=== PATIENT | male | born 1935 | race Caucasian/White ===

== ENCOUNTER 2017-08-11 06:27 | Day surgery (SDC) | payer MEDICARE, BC ==
[2017-08-09 13:04] VITALS: BMI 24.7
[2017-08-11] MEDS ORDERED: ASPIRIN 325 MG TAB ONE (07:05)
[2017-08-11] MEDS ORDERED: LOSARTAN 50 MG TAB PO STA (07:05)
[2017-08-11] MEDS ORDERED: SODIUM CHLORIDE 0.9% 1,000 ML IV ONE (07:21)
[2017-08-11 07:26] LABS: Basophils # (A) 0.1 k/uL (0-0.2); Basophils % (A) 1 %; Eosinophils # (A) 0.6 k/uL (0-0.7); Eosinophils % (A) 7 %; HCT 46.8 % (39.0-53.0); HGB 14.9 gm/dL (13.0-17.5); Lymphocytes # (A) 1.6 k/uL (1.0-4.8); Lymphocytes % (A) 17 %; MCH 28.8 pg (25.0-35.0); MCHC 31.9 g/dL (31.0-37.0); MCV 90.2 fL (80.0-100.0); Mean Platelet Volume 7.3; Monocytes # (A) 0.9 k/uL (0-1.0); Monocytes % (A) 9 %; Neutrophils # (A) 5.8 k/uL (1.3-7.7); Neutrophils % (A) 64 %; Platelet Count 141 k/uL (150-450); RBC 5.19 m/uL (4.30-5.90); RDW 15.2 % (11.5-15.5); WBC 9.1 k/uL (3.8-10.6)
[2017-08-11 07:36] LABS: Anion Gap 11 mmol/L; Blood Urea Nitrogen 19 mg/dL (9-20); Calcium 9.3 mg/dL (8.4-10.2); Carbon Dioxide 23 mmol/L (22-30); Chloride 107 mmol/L (98-107); Glucose 95 mg/dL (74-99); Potassium 4.7 mmol/L (3.5-5.1); Sodium 141 mmol/L (137-145)
[2017-08-11] MEDS: MIDAZOLAM 2 MG/2 ML VIAL IVP ONE ×2 (08:08→08:13)
[2017-08-11] MEDS ORDERED: LIDOCAINE 2% INJ 20 MG/ML SQ ONE (08:11)
[2017-08-11] MEDS ORDERED: HEPARIN SODIUM 1,000 UN/ML (10ML VL) IV ONE (08:18)
[2017-08-11] MEDS: hydrALAZINE HCL 20 MG/ML 1 ML VIAL IV ONE ×2 (08:39→08:58)
[2017-08-11] MEDS ORDERED: ENALAPRILAT 1.25 MG/ML 1 ML VIAL IV ONE (08:40)
[2017-08-11] MEDS ORDERED: CLOPIDOGREL 75 MG TAB PO ONE (09:42)
[2017-08-11] MEDS ORDERED: IODIXANOL 320 MG/ML 100 ML INTRAARTER ONE (10:06)
[2017-08-11] MEDS ORDERED: hydrALAZINE HCL 20 MG/ML 1 ML VIAL IVP ONE (10:06)
[2017-08-11] MEDS ORDERED: SODIUM CHLORIDE 0.9% 1,000 ML IV SCH (10:15)
--- NOTE | 2017-08-11 13:09 | AN ---
ANGIOGRAPHY REPORT PERCUTANEOUS PERIPHERAL INTERVENTION. DATE OF SERVICE: 08/11/2017 PERFORMING PHYSICIAN: Ramon oRdriguez MD, auxiliary equipment tender. PROCEDURE PERFORMED: 1. Selective bilateral common iliac arteries angiogram. 2. Successful stenting of the left common iliac artery using a 10 x 59 Omnilink balloon expandable stent with good angiographic results. 3. Successful stenting of the right external iliac artery using a 9 x 59 iCAST covered stent with good angiographic results. 4. Selective left SFA angiogram. 5. Selective left popliteal angiogram. 6. Selective left [id number] angiogram. 7. Selective right common femoral artery angiogram. INDICATION: This is a pleasant 82-year-old gentleman who sees Dr. Hoda Hinojosa in the office as an outpatient who was experiencing bilateral lower extremities intermittent claudication and underwent a peripheral angiogram which revealed severe disease involving the left common iliac and right external iliac arteries. He was brought today to undergo an intervention. APPROACH: Right common femoral artery. COMPLICATION: None. LEVEL OF SEDATION: Moderate with sedation length of 109 minutes. PROCEDURE DESCRIPTION: After obtaining an informed consent, the patient was brought to cardiac laborer cutting tool. The right common femoral artery was cannulated using micropuncture technique and a micropuncture wire passed easily, then I placed a 6-Indian sheath in the right common femoral artery. I did place initially a 6-Indian 11 cm sheath. Subsequently I did select the left profunda femoris using a Rim catheter with 0.035 advantage wire. I did try to exchange my 11 cm sheath into 55 cm 6-Indian Raabe sheath using the advantage wire, but I was unable to get the sheath up and over because of the calcified aortic bifurcation and acute angulation. I was able to get the sheath up and over using a 6- Indian multipurpose catheter. After that, I did selective left common iliac artery angiogram. After that, I did balloon angioplasty of the left common iliac artery using 8 mm balloon. After that, I did deploy an Omnilink and that was 10 x 59 mm stent where the stent was positioned under fluoroscopy guidance and deployed under its nominal pressure for about 1 minute. The following angiogram showed good angiographic results. For the lesion in the right external iliac artery, I did pre-dilate that lesion using the same 8 mm balloon. After that, I did stent that lesion using 9 x 59 mm iCAST covered stent where the stent was positioned under fluoroscopy guidance and deployed under its nominal pressure as well. The following angiogram showed good angiographic results without perforation and without dissection with a good flow. I did after that I do left SFA, left popliteal, and left athlh-ilk-eeyo angiogram to assess the SFA occlusion. I was able to do that after I did select the left iliac artery using 5-Indian Rim catheter. Then I advanced the Rim all the way to the external iliac artery. I did manual injection and pictures. SELECTIVE PERIPHERAL ANGIOGRAM: The SFA on the left side seems to be completely occluded, but I was able to see a tiny stump. It reconstitutes by the popliteal, which is also subtotally occluded. Below the knee, there was 2-vessel runoff with AT and peroneal. POSTPROCEDURE MANAGEMENT: 1. At this point, maximize medical treatment. 2. Risk factors modifications. 3. BUCKET OPERATOR of the left SFA if the patient continues to be symptomatic in spite of what we did today. MMODL / IJN: [id number] /
[2017-08-11] MEDS ORDERED: ATORVASTATIN 80 MG TAB PO SCH (21:00)
[2017-08-12 06:50] LABS: Basophils # (A) 0.1 k/uL (0-0.2); Basophils % (A) 1 %; Eosinophils # (A) 0.2 k/uL (0-0.7); Eosinophils % (A) 2 %; HCT 48.1 % (39.0-53.0); HGB 16.3 gm/dL (13.0-17.5); Lymphocytes # (A) 0.9 k/uL (1.0-4.8); Lymphocytes % (A) 8 %; MCH 29.9 pg (25.0-35.0); MCHC 33.9 g/dL (31.0-37.0); MCV 88.1 fL (80.0-100.0); Mean Platelet Volume 7.1; Monocytes # (A) 1.1 k/uL (0-1.0); Monocytes % (A) 9 %; Neutrophils # (A) 9.4 k/uL (1.3-7.7); Neutrophils % (A) 79 %; Platelet Count 146 k/uL (150-450); RBC 5.47 m/uL (4.30-5.90); RDW 15.2 % (11.5-15.5); WBC 11.9 k/uL (3.8-10.6)
[2017-08-12 07:23] LABS: Anion Gap 11 mmol/L; Blood Urea Nitrogen 13 mg/dL (9-20); Calcium 9.2 mg/dL (8.4-10.2); Carbon Dioxide 24 mmol/L (22-30); Chloride 106 mmol/L (98-107); Glucose 104 mg/dL (74-99); Potassium 3.6 mmol/L (3.5-5.1); Sodium 141 mmol/L (137-145)
--- NOTE | 2017-08-12 08:11 | IR ---
Fluoroscopy HISTORY: Peripheral vascular occlusive disease 35.7 minutes fluoroscopy time supplied to the referring clinician. 704 intraoperative C-arm images d ocument the procedure. See dictated report from cardiology.
[2017-08-12 08:44] VITALS: BP 125/95; PULSE 93; RESP 16; TEMP 96.8
[2017-08-12] MEDS ORDERED: CLOPIDOGREL 75 MG TAB PO SCH (09:00)
--- NOTE | 2017-08-12 22:38 | P.DS ---
Providers Date of admission: 08/11/2017 Attending physician: Ramon Rodriguez Primary care physician: [facility] Course: This is a pleasant 82-year-old gentleman who sees Dr. MURIEL Hinojosa in the office as an outpatient was admitted to the hospital yesterday and underwent successful stenting of the right and left iliac arteries with a good angiographic results and without any complication from a right groin approach. On follow-up with the patient today he is doing good and he is asymptomatic. The right groin which was the access site is soft and nontender and without any bruises. The patient is going to be discharged home on dual antiplatelet therapy as well as a statin. Patient Condition at Discharge: Stable Plan - Discharge Summary Discharge Rx Participant: No New Discharge Prescriptions: New Clopidogrel [Plavix] 75 mg PO DAILY #90 tab Aspirin 81 mg PO DAILY #30 chewable Continue amLODIPine [Norvasc] 10 mg PO HS Atorvastatin [Lipitor] 80 mg PO HS Losartan [Cozaar] 50 mg PO QAM Warfarin [Coumadin] 5 mg PO DAILY Discontinued Aspirin 325 mg PO HS Discharge Medication List Atorvastatin [Lipitor] 80 mg PO HS 05/05/17 [History] Losartan [Cozaar] 50 mg PO QAM 05/05/17 [History] amLODIPine [Norvasc] 10 mg PO HS 05/05/17 [History] Warfarin [Coumadin] 5 mg PO DAILY 08/11/17 [History] Aspirin 81 mg PO DAILY #30 chewable 08/12/17 [Rx] Clopidogrel [Plavix] 75 mg PO DAILY #90 tab 08/12/17 [Rx] Follow up Appointment(s)/Referral(s): Sawyer Hinojosa MD [STAFF PHYSICIAN] - 08/23/17 9:45 am Ramon Rodriguez MD [STAFF PHYSICIAN] - 1 Week (Office will call with appointment time) Patient Instructions/Handouts: Peripheral Vascular Stent Placement (DC), Peripheral Artery Disease (DC) Discharge Disposition: HOME SELF-CARE
== END 2017-08-12 09:50 | disposition home or self-care (01) ==
LOC: CATHCVL 06:27 → 6SEL 09:59 → CATHCVL 08-12 09:50
PROVIDERS: ATTEND Internal Medicine Interventional Cardiology
DX: I70.213 Atherosclerosis of native arteries of extremities with intermittent claudication, bilateral legs (principal); I10 Essential (primary) hypertension; E78.5 Hyperlipidemia, unspecified; Z79.82 Long term (current) use of aspirin; Z86.73 Personal history of transient ischemic attack (TIA), and cerebral infarction without residual deficits; I48.91 Unspecified atrial fibrillation; I77.1 Stricture of artery; E78.00 Pure hypercholesterolemia, unspecified; Z87.891 Personal history of nicotine dependence; Z79.01 Long term (current) use of anticoagulants; Z79.899 Other long term (current) drug therapy
CPT/HCPCS: 37221 ×2; 36245; 36246; 80048 ×2; 85025 ×2; C1894 ×3; C1769 ×4; C1725 ×2; C1874; C1876; J2001; J2250; J0360; Q9967; J1644

== ENCOUNTER 2017-08-16 08:28 | Emergency (ER) | payer MEDICARE, BC ==
--- NOTE | 2017-08-16 09:15 | ED ---
Male Urogenital HPI - General Chief complaint: Urogenital Stated complaint: Urinating blockage Time Seen by Provider: 08/16/17 08:36 Source: patient, RN notes reviewed Mode of arrival: ambulatory Limitations: no limitations - History of Present Illness Initial comments: This an 82-year-old male presents emergency Department chief complaint of unable to urinate. Patient states that he had stent placed in his iliac on the right by Dr. Rodriguez last week. He states that he stayed in the hospital did have a Gil overnight because he was unable to urinate states that was removed he noticed that his stream without very good after in symptoms slowly got worse. He states his been unable to urinate at all this morning. He feels that he is ago he complains of lower abdominal pressure. Patient denies fever, chills. He does admit that he has enlarged prostate and has not seen urologist in a while. Patient offers no other complaints. - Related Data Home Medications Medication Instructions Recorded Confirmed Atorvastatin [Lipitor] 80 mg PO HS 05/05/17 08/16/17 Losartan [Cozaar] 50 mg PO QAM 05/05/17 08/16/17 Warfarin [Coumadin] 5 mg PO DAILY 08/11/17 08/16/17 Metoprolol Tartrate [Lopressor] 25 mg PO BID 08/16/17 08/16/17 Allergies Allergy/AdvReac Type Severity Reaction Status Date / Time No Known Allergies Allergy Verified 08/16/17 09:15 Review of Systems ROS Statement: Those systems with pertinent positive or pertinent negative responses have been documented in the HPI. ROS Other: All systems not noted in ROS Statement are negative. Past Medical History Past Medical History: Cancer, CVA/TIA, Hyperlipidemia, Hypertension Additional Past Medical History / Comment(s): PAD, hx throat CA; CVA 1998, states is numb on left side, History of Any Multi-Drug Resistant Organisms: None Reported Additional Past Surgical History / Comment(s): left carotid endartectomy, justine cataracts, "neck sx for pinched nerve" Past Anesthesia/Blood Transfusion Reactions: No Reported Reaction Past Psychological History: No Psychological Hx Reported Smoking Status: Former smoker Past Alcohol Use History: None Reported Past Drug Use History: None Reported - Past Family History Mother Family Medical History: No Reported History General Exam Limitations: no limitations General appearance: alert, in no apparent distress Head exam: Present: atraumatic, normocephalic, normal inspection Eye exam: Present: normal appearance, PERRL, EOMI. Absent: scleral icterus, conjunctival injection, periorbital swelling ENT exam: Present: mucous membranes moist Respiratory exam: Present: normal lung sounds bilaterally. Absent: respiratory distress, wheezes, rales, rhonchi, stridor Cardiovascular Exam: Present: regular rate, normal rhythm, normal heart sounds. Absent: systolic murmur, diastolic murmur, rubs, gallop, clicks GI/Abdominal exam: Present: soft, tenderness (Suprapubic tenderness), normal bowel sounds. Absent: distended, guarding, rebound, rigid Extremities exam: Present: other (Right groin noted ecchymosis essentially nontender ) Back exam: Absent: CVA tenderness (R), CVA tenderness (L) Skin exam: Present: warm, dry, intact, normal color. Absent: rash Course Vital Signs 08/16/17 08:31 Temperature 97.4 F L Pulse Rate 84 Respiratory 18 Rate Blood Pressure 124/82 O2 Sat by Pulse 94 L Oximetry Medical Decision Making - Medical Decision Making 10-year-old male presented with family for urinary retention. Patient had almost 1 L noted on bladder scan. Gil was placed patient relief of his symptoms. Urinalysis was sent patient be discharged with leg bag and follow-up with urologist. - Lab Data Lab Results 08/16/17 Range/Units 09:08 Urine Color Yellow Urine Appearance Clear (Clear) Urine pH 5.5 (5.0-8.0) Ur Specific [place] 1.014 (1.001-1.035) Urine Protein Trace H (Negative) Urine Glucose (UA) Negative (Negative) Urine Ketones Negative (Negative) Urine Blood Small H (Negative) Urine Nitrite Negative (Negative) Urine Bilirubin Negative (Negative) Urine Urobilinogen <2.0 (<2.0) mg/dL Ur Leukocyte Esterase Negative (Negative) Urine RBC 21 H (0-5) /hpf Urine WBC 3 (0-5) /hpf Urine Mucus Rare H (None) /hpf Disposition Clinical Impression: Urinary retention Disposition: HOME SELF-CARE Condition: Stable Instructions: Urinary Retention in Men (ED) Additional Instructions: Please return to the Emergency Department if symptoms worsen or any other concerns. Referrals: John Cm MD [Primary Care Provider] - 1-2 days Sumeet West MD [STAFF PHYSICIAN] - 1-2 days
[2017-08-16 09:31] LABS: Appearance,Urine Clear (Clear); Bilirubin,Urine Negative (Negative); Blood,Urine Small (Negative); Color,Urine Yellow; Glucose,Urine (UA) Negative (Negative); Ketones,Urine Negative (Negative); Leukocyte Esterase,Urine Negative (Negative); Mucus,Urine Rare /hpf; Nitrite,Urine Negative (Negative); PH, Urine 5.5 (5.0-8.0); Protein,Urine Trace (Negative); RBC,Urine 21 /hpf (0-5); Specific Gravity,Urine 1.014 (1.001-1.035); Urobilinogen,Urine <2.0 mg/dL (<2.0); WBC,Urine 3 /hpf (0-5)
[2017-08-16 10:09] VITALS: BP 122/68; PULSE 76; RESP 16; TEMP 97.8
== END 2017-08-16 10:08 | disposition home or self-care (01) ==
LOC: EC 08:28
DX: R33.9 Retention of urine, unspecified (principal); E78.5 Hyperlipidemia, unspecified; I10 Essential (primary) hypertension; Z86.73 Personal history of transient ischemic attack (TIA), and cerebral infarction without residual deficits; Z85.89 Personal history of malignant neoplasm of other organs and systems; Z87.891 Personal history of nicotine dependence; Z79.01 Long term (current) use of anticoagulants; Z79.899 Other long term (current) drug therapy
CPT/HCPCS: 51702; 51798; 81001; 87086; 99284

== ENCOUNTER 2017-08-27 03:16 | Emergency (ER) | payer MEDICARE, BC ==
[2017-08-27 03:24] VITALS: PULSE 89; RESP 18; TEMP 97
[2017-08-27 04:03] LABS: Appearance,Urine Clear (Clear); Bacteria,Urine Rare /hpf; Bilirubin,Urine Negative (Negative); Blood,Urine Small (Negative); Color,Urine Yellow; Glucose,Urine (UA) Negative (Negative); Hyaline Casts,Urine 5 /lpf (0-2); Ketones,Urine Negative (Negative); Leukocyte Esterase,Urine Small (Negative); Mucus,Urine Rare /hpf; Nitrite,Urine Negative (Negative); Protein,Urine Trace (Negative); RBC,Urine 8 /hpf (0-5); Specific Gravity,Urine 1.017 (1.001-1.035); Squamous Epithelial Cell,Urine <1 /hpf (0-4); Urobilinogen,Urine <2.0 mg/dL (<2.0); WBC,Urine 29 /hpf (0-5)
--- NOTE | 2017-08-27 04:08 | ED ---
Male Urogenital HPI - General Chief complaint: Urogenital Stated complaint: Trouble urinating Time Seen by Provider: 08/27/17 03:27 Source: patient Mode of arrival: ambulatory Limitations: no limitations - History of Present Illness MD Complaint: other (Urinary retention) Onset/Timin -: hour(s) Location: abdomen Radiation: none Severity: moderate Quality: other (Pressure) Consistency: constant Improves with: none Worsens with: none Reports: urinary retention - Related Data Home Medications Medication Instructions Recorded Confirmed Atorvastatin [Lipitor] 80 mg PO HS 05/05/17 08/16/17 Losartan [Cozaar] 50 mg PO QAM 05/05/17 08/16/17 Warfarin [Coumadin] 5 mg PO DAILY 08/11/17 08/16/17 Metoprolol Tartrate [Lopressor] 25 mg PO BID 08/16/17 08/16/17 Allergies Allergy/AdvReac Type Severity Reaction Status Date / Time No Known Allergies Allergy Verified 08/27/17 03:24 Review of Systems ROS Statement: Those systems with pertinent positive or pertinent negative responses have been documented in the HPI. ROS Other: All systems not noted in ROS Statement are negative. Constitutional: Denies: fever, chills, weakness Respiratory: Denies: cough, dyspnea Cardiovascular: Denies: chest pain, palpitations Gastrointestinal: Reports: as per HPI, abdominal pain. Denies: nausea, vomiting , diarrhea Genitourinary: Reports: other (Or tension). Denies: dysuria, hematuria, testicular pain, testicular mass Musculoskeletal: Denies: back pain Skin: Denies: rash Past Medical History Past Medical History: Cancer, CVA/TIA, Hyperlipidemia, Hypertension Additional Past Medical History / Comment(s): PAD, hx throat CA; CVA 1998, states is numb on left side, History of Any Multi-Drug Resistant Organisms: None Reported Additional Past Surgical History / Comment(s): left carotid endartectomy, justine cataracts, "neck sx for pinched nerve," Past Anesthesia/Blood Transfusion Reactions: No Reported Reaction Past Psychological History: No Psychological Hx Reported Smoking Status: Former smoker Past Alcohol Use History: None Reported Past Drug Use History: None Reported - Past Family History Mother Family Medical History: No Reported History General Exam Limitations: no limitations General appearance: alert, in distress Head exam: Present: atraumatic, normocephalic Respiratory exam: Present: normal lung sounds bilaterally. Absent: respiratory distress, wheezes, rales, rhonchi, stridor Cardiovascular Exam: Present: regular rate, normal rhythm, normal heart sounds. Absent: systolic murmur, diastolic murmur, rubs, gallop GI/Abdominal exam: Present: soft, tenderness (Mild suprapubic fullness and tenderness), guarding (Suprapubic), normal bowel sounds. Absent: rebound, rigid , pulsatile mass, hernia exam: Present: normal inspection Extremities exam: Present: normal inspection, normal capillary refill. Absent: pedal edema, calf tenderness Back exam: Present: normal inspection. Absent: CVA tenderness (R), CVA tenderness (L) Neurological exam: Present: alert Skin exam: Present: warm, dry, intact, normal color. Absent: rash Course Vital Signs 08/27/17 03:18 Temperature 97.0 F L Pulse Rate 89 Respiratory 18 Rate O2 Sat by Pulse 100 Oximetry Medical Decision Making - Medical Decision Making Patient had a catheter placed which did relieve the tension and his symptoms resolved. Discussed appropriate further care and follow-up. - Lab Data Lab Results 08/27/17 Range/Units 03:43 Urine Color Yellow Urine Appearance Clear (Clear) Urine pH 6.0 (5.0-8.0) Ur Specific [place] 1.017 (1.001-1.035) Urine Protein Trace H (Negative) Urine Glucose (UA) Negative (Negative) Urine Ketones Negative (Negative) Urine Blood Small H (Negative) Urine Nitrite Negative (Negative) Urine Bilirubin Negative (Negative) Urine Urobilinogen <2.0 (<2.0) mg/dL Ur Leukocyte Esterase Small H (Negative) Urine RBC 8 H (0-5) /hpf Urine WBC 29 H (0-5) /hpf Urine WBC Clumps Rare H (None) /hpf Ur Squamous Epith Cells <1 (0-4) /hpf Urine Bacteria Rare H (None) /hpf Hyaline Casts 5 H (0-2) /lpf Urine Mucus Rare H (None) /hpf Disposition Clinical Impression: Urinary retention Disposition: HOME SELF-CARE Condition: Fair Instructions: Urinary Retention in Men (ED) Referrals: John Cm MD [Primary Care Provider] - 1-2 days
== END 2017-08-27 04:26 | disposition home or self-care (01) ==
LOC: EC 03:16
DX: R33.9 Retention of urine, unspecified (principal); E78.5 Hyperlipidemia, unspecified; I10 Essential (primary) hypertension; Z86.73 Personal history of transient ischemic attack (TIA), and cerebral infarction without residual deficits; Z85.818 Personal history of malignant neoplasm of other sites of lip, oral cavity, and pharynx; Z87.891 Personal history of nicotine dependence; Z79.01 Long term (current) use of anticoagulants; Z79.899 Other long term (current) drug therapy
CPT/HCPCS: 36415; 51702; 81001; 84550; 85025; 87086; 99283

== ENCOUNTER → 2017-08-27 | Outpatient (CLI) | payer MEDICARE, BC ==
[2017-08-27 16:32] LABS: Basophils % (A) 0 %; Eosinophils # (A) 0.2 k/uL (0-0.7); Eosinophils % (A) 2 %; HGB 13.4 gm/dL (13.0-17.5); Hypochromasia Slight; Lymphocytes # (A) 0.5 k/uL (1.0-4.8); Lymphocytes % (A) 5 %; MCH 27.9 pg (25.0-35.0); MCHC 30.6 g/dL (31.0-37.0); MCV 91.3 fL (80.0-100.0); Mean Platelet Volume 7.6; Monocytes # (A) 0.8 k/uL (0-1.0); Monocytes % (A) 8 %; Neutrophils # (A) 7.7 k/uL (1.3-7.7); Neutrophils % (A) 82 %; Platelet Count 174 k/uL (150-450); RBC 4.82 m/uL (4.30-5.90); RDW 14.7 % (11.5-15.5); WBC 9.5 k/uL (3.8-10.6)
== END | disposition home or self-care (01) ==
LOC: LABWHC1 15:30
PROVIDERS: ATTEND Internal Medicine
DX: M10.9 Gout, unspecified (principal); N39.0 Urinary tract infection, site not specified
CPT/HCPCS: 36415; 84550; 85025; 87086

== ENCOUNTER 2018-09-13 07:50 | Inpatient (IN) | payer MEDICARE, BC ==
[2018-09-13] MEDS ORDERED: ALPRAZolam 0.25 MG TAB PO ONE (08:28)
[2018-09-13] MEDS ORDERED: HYDROmorphone 1 MG/ML 1 ML SYRINGE IVP STA ×4 (08:28→18:28)
[2018-09-13 08:38] LABS: INR 1.3 (<1.2)
--- NOTE | 2018-09-13 11:39 | CT ---
EXAMINATION TYPE: CT biopsy lung RT, CT chest tube insertion DATE OF EXAM: 09/13/2018 COMPARISON: None HISTORY: Right lower lobe pulmonary mass. TECHNIQUE: The procedure is discussed with the patient, the risks, complications, benefits and altern atives, were discussed and any questions were answered. Informed consent was obtained. Preprocedura l timeout was performed. The patient is placed prone on the CT table, prepped and draped in the usual sterile fashion. Utilizing an 18-gauge coaxial temno needle access into the right lobe mass was achieved with the firs t pass demonstrating a good core sample with the appearance of necrotic tissue. However on the second pass a pneumothorax occurred. Given the size of the pneumothorax a thoracostomy tube was placed and the area was removed. Subsequently additional 4 core needle biopsies were obtained with confirmation of the needle within the pulmonary nodule under CT. All elements of maximal barrier technique were utilized. Despite the pneumothorax the patient remained stable throughout the procedure. Findings and complications were discussed with the patient and the patient's family as well as the or dering physician after biopsy. The patient will be admitted and monitored. IMPRESSION: Successful CT guided fine needle aspiration of a right lobe lung mass and insertion of a right-sided thoracostomy tube.
--- NOTE | 2018-09-13 11:41 | XR ---
EXAMINATION TYPE: XR chest 1V portable DATE OF EXAM: 09/13/2018 COMPARISON: CT-guided lung biopsy of 09/13/2018 HISTORY: Right-sided pneumothorax status post lung biopsy. TECHNIQUE: Single frontal view of the chest is obtained. FINDINGS: There is a right-sided pneumothorax with maximal pleural separation of the peripheral righ t upper lung measuring 1 cm and of the right lower lung measuring 1.6 cm. Thoracostomy tube is in jemal ce placed medially along the right lower lobe. Scattered areas of atelectasis are seen within both aditi ngs. The right lower lobe. Nodule is partially extruded. Cardia mediastinal silhouette is enlarged. IMPRESSION: Status post right-sided lung biopsy with right pneumothorax as measured above and right thoracostomy tube in place.
[2018-09-13] MEDS ORDERED: CYCLOBENZAPRINE 5 MG TAB PO STA (11:57)
[2018-09-13 12:52] LABS: HCT 48.8 % (39.0-53.0); HGB 15.5 gm/dL (13.0-17.5); MCH 30.4 pg (25.0-35.0); MCHC 31.7 g/dL (31.0-37.0); MCV 95.8 fL (80.0-100.0); Mean Platelet Volume 8.9; RBC 5.09 m/uL (4.30-5.90); RDW 15.8 % (11.5-15.5); WBC 8.8 k/uL (3.8-10.6)
[2018-09-13 12:58] LABS: Platelet Count 133 k/uL (150-450)
[2018-09-13 13:17] VITALS: BMI 24.3
--- NOTE | 2018-09-13 13:20 | XR ---
EXAMINATION TYPE: XR chest 1V portable DATE OF EXAM: 09/13/2018 COMPARISON: 09/13/2018 HISTORY: Status post right-sided lung biopsy. Pneumothorax. TECHNIQUE: Single frontal view of the chest is obtained. FINDINGS: There is improving right-sided pneumothorax with maximal right apical pleural separation o f 9 mm, previously 1 cm in maximal right basilar pleural separation of 4 mm, previously 1.6 cm. There is a medial right-sided thoracostomy tube. Scattered areas of atelectasis are again seen. Cardia med iastinal silhouette is enlarged. IMPRESSION: Improving right-sided pneumothorax status post lung biopsy with stable placement of a ri ght-sided thoracostomy tube.
--- NOTE | 2018-09-13 14:10 | XR ---
EXAMINATION TYPE: XR chest 1V portable DATE OF EXAM: 09/13/2018 COMPARISON: 09/13/2018 HISTORY: Status post right-sided lung biopsy pneumothorax follow-up. TECHNIQUE: Single frontal view of the chest is obtained. FINDINGS: The right thoracostomy tube is no longer present. There is a similar appearing right sided pneumothorax estimated at approximately 10% with 8 mm right apical pleural separation and approximat elder 7 mm right basilar pleural separation. Again multifocal atelectasis and cardiomegaly are seen. Os seous structures are grossly intact. No mediastinal shift. IMPRESSION: Similar-appearing size of the approximately 10% right-sided pneumothorax status post danny g biopsy.
--- NOTE | 2018-09-13 16:07 | XR ---
EXAMINATION TYPE: XR chest 1V portable DATE OF EXAM: 09/13/2018 COMPARISON: 09/23/2018 HISTORY: Status post lung biopsy. TECHNIQUE: Single frontal view of the chest is obtained. FINDINGS: The right apical pneumothorax appears similar in size with maximum right upper lung pleura l separation of 1.2 cm. No current mediastinal shift is seen. Cardiac silhouette is again enlarged. R ight basilar pulmonary nodule is now visible radiographically. Multifocal shifting atelectasis is aga in seen. Diffuse osseous demineralization is also noted. IMPRESSION: Overall similar size of the right-sided pneumothorax without current mediastinal shift.
--- NOTE | 2018-09-13 18:07 | XR ---
EXAMINATION: XR chest 1V portable DATE AND TIME: 09/13/2018 5:46 PM CLINICAL INDICATION: PHH; pneumothorax TECHNIQUE: 2 upright portable frontal views COMPARISON: Chest radiograph 09/13/2018 at 3:37 PM FINDINGS: Right pigtail catheter is noted, with pigtail superimposed over the dome of the right hemidiaphragm a t the midclavicular line. There is a prominent fine reticular pattern of increased density throughout the lungs bilaterally, co nsistent with advanced interstitial phase pulmonary edema - worse than the prior study. Partial bibasilar airlessness is also noted, likely atelectasis, but concurrent pneumonia can only be excluded clinically. There is no pneumothorax. Mild moderately enlarged cardiac silhouette is redemonstrated. No definite acute skeletal or soft tissue findings. IMPRESSION: Mild interval worsening in the overall lung inflation pattern.
--- NOTE | 2018-09-13 19:14 | CT ---
EXAMINATION TYPE: SUPINE CHEST CT W/O CON - post chest tube insertion earlier today DATE OF EXAM: 09/13/2018 COMPARISON: Prone CT 10:00 AM 09/13/2008; CXR 5:33 PM today. HISTORY: Chest tube insertion CT DLP: 987 mGycm Automated exposure control for dose reduction was used. FINDINGS: The pigtail catheter is located within the anterior right pleural space, entering from a ri [facility] anter[facility] approach with the center of the pigtail 3.5 cm deep to the rib cage. The catheter, from the skin surface contiguously on into the pleural space, is normal in its appearan ce and is not kinked. The pneumothorax occupies approximately 10-15% of the right hemithorax volume. There is no new lung parenchymal process. The multifocal pleural calcifications are redemonstrated. The soft tissues and skeletal structures are negative for acute findings. Note: When compared to the 5:33 PM radiograph, in retrospect the right visceral line sign can be visu alized high in the right apex, superimposed over the posterior third rib shadow and clavicle. IMPRESSION: POST PROCEDURE CT WITH 10-15% PNEUMOTHORAX AT THE PRESENT TIME.
--- NOTE | 2018-09-13 19:36 | P.HPIM ---
History of Present Illness H&P Date: 09/13/18 Chief Complaint: Pneumothorax 09/13/2018: Patient seen and examined. Patient underwent CT guided needle biopsy and was found to have a right pneumothorax. The patient states he has had shortness of breath for over a year. He states it all started with an irregular heartbeat and he was found to have atrial fibrillation. The patient does follow up with cardiology and underwent a heart catheterization. He was found to have an occluded RCA patient however there are are multiple collaterals. The patient was also found to have pulmonary hypertension with normal left-sided filling pressures. The patient's main pulmonary artery pressure is 26 mmHg. The patien t states that he does wheeze when he lays in bed. He states he can hear himself breathing. He is a former smoker and quit more than 2 years ago. He used to smoke about a pack per day for 40 years. He denies a history of asthma and COPD. He does not use any inhalers or nebulizer. He used to work in a [employer]. He states he was exposed to asbestos in the [employer]. He used to get a chest x-ray once a year but states that he has not had one in over 2 years. He denies a history of lung cancer. He states that he does cough and is very congested especially in the morning. He states he does produce a lot of phlegm. He denies any environmental allergies although his daughter notes that he was allergic to his cat which is no longer in the home. The patient did have a pulmonary function test done. The patient was found to have mild to moderate obstructive lung defect as well as a decreased MVV concerning for neuromuscular disease. He also had blood work done by his primary care physician which showed a mildly elevated BENJY and an elevated eosinophil count at 600. The patient underwent CT of the chest and was found to have a 2.4 x 2.4 cm pleural-based spiculated right lower lobe lung mass which was biopsied today. Review of Systems All systems: negative Past Medical History Past Medical History: Atrial Fibrillation, Cancer, Chest Pain / Angina, COPD, CVA/TIA, Hyperlipidemia, Hypertension, Prostate Disorder, Vascular Disorder Additional Past Medical History / Comment(s): PAD, hx throat CA 14 yrs. ago-tx. w/radiation, CVA 1998- numbness on left side, mass in lung, hx. of asbestos exposure years ago, SOB w/exertion History of Any Multi-Drug Resistant Organisms: None Reported Past Surgical History: Heart Catheterization Additional Past Surgical History / Comment(s): left carotid endartectomy, justine cataracts, "neck sx for pinched nerve," stenting right & left iliac arteries Past Anesthesia/Blood Transfusion Reactions: No Reported Reaction Past Psychological History: No Psychological Hx Reported Smoking Status: Former smoker Past Alcohol Use History: None Reported Additional Past Alcohol Use History / Comment(s): quit smoking 2013, smoked 1ppd from age 15 Past Drug Use History: None Reported - Past Family History Mother Family Medical History: No Reported History Medications and Allergies Home Medications Medication Instructions Recorded Confirmed Type Atorvastatin [Lipitor] 80 mg PO HS 05/05/17 09/13/18 History Losartan [Cozaar] 100 mg PO QAM 05/05/17 09/13/18 History Metoprolol Tartrate [Lopressor] 50 mg PO BID 08/16/17 09/13/18 History Apixaban [Eliquis] 5 mg PO BID 08/26/18 09/13/18 History Aspirin 81 mg PO DAILY 08/26/18 09/13/18 History Beclomethasone Dipropionate [Qvar 1 puff INHALATION BID 08/26/18 09/13/18 History 80 mcg] Cholecalciferol [Vitamin D3] 1,000 unit PO DAILY 08/26/18 09/13/18 History Ferrous Sulfate [Feosol] 325 mg PO DAILY 08/26/18 09/13/18 History Finasteride [Proscar] 5 mg PO DAILY 08/26/18 09/13/18 History Fluticasone Propionate [Flovent 1 puff INHALATION BID 08/26/18 09/13/18 History Hfa 220 mcg] Furosemide [Lasix] 20 mg PO DAILY 08/26/18 09/13/18 History Ranolazine [Ranexa] 500 mg PO BID 08/26/18 09/13/18 History Tamsulosin HCl [Flomax] 0.4 mg PO BID 08/26/18 09/13/18 History hydrALAZINE HCL [Apresoline] 50 mg PO BID 08/26/18 09/13/18 History Allergies Allergy/AdvReac Type Severity Reaction Status Date / Time No Known Allergies Allergy Verified 09/13/18 08:32 Physical Exam Osteopathic Statement: *. No significant issues noted on an osteopathic structural exam other than those noted in the History and Physical/Consult. Vitals: Vital Signs Temp Pulse Resp BP Pulse Ox 09/13/18 17:38 97.7 F 73 18 152/84 94 L 09/13/18 17:15 68 14 173/83 97 09/13/18 17:05 65 14 170/81 98 09/13/18 16:44 68 16 193/100 98 09/13/18 14:45 97.7 F 81 18 123/94 97 09/13/18 12:22 64 14 193/80 98 09/13/18 12:16 70 16 190/86 97 09/13/18 12:15 70 16 193/82 97 09/13/18 11:46 68 14 206/98 98 09/13/18 11:31 64 14 166/88 98 09/13/18 11:16 64 14 180/101 98 09/13/18 11:01 64 16 196/78 97 09/13/18 10:45 63 14 204/92 97 09/13/18 10:30 61 14 193/80 98 09/13/18 10:15 67 16 173/76 94 L 09/13/18 10:00 72 14 180/76 95 09/13/18 09:45 74 14 173/80 97 09/13/18 09:39 74 14 173/87 96 09/13/18 09:30 65 16 180/79 96 09/13/18 09:15 64 14 175/87 97 09/13/18 08:39 97.5 F L 52 L 14 144/75 96 Intake and Output 09/13/18 09/13/18 09/13/18 06:59 14:59 22:59 Intake Total 240 Balance 240 Intake: Oral 240 General: Patient is alert and oriented 3, no acute distress Cardiovascular: Regular rate and rhythm, S1/S2 Lungs: Diminished breath sounds bilaterally, posterior pigtail chest tube in place Abdomen: Soft nontender nondistended positive bowel sounds Extremities: No edema Results CBC & Chem 7: 09/13/18 08:10 Labs: Abnormal Lab Results - Last 24 Hours (Table) 09/13/18 09/13/18 Range/Units 08:10 08:10 RDW 15.8 H (11.5-15.5) % Plt Count 133 L (150-450) k/uL PT 13.0 H (9.0-12.0) sec INR 1.3 H (<1.2) Chest x-ray: report reviewed, image reviewed Thrombosis Risk Factor Assmnt - DVT/VTE Prophylaxis DVT/VTE Prophylaxis: Mechanical Prophylaxis ordered, Low risk, early ambulation encouraged - Choose All That Apply Each Factor Represents 1 point: Abnormal pulmonary function (COPD) Each Risk Factor Represents 2 Points: Malignancy Thrombosis Risk Factor Assessment Total Risk Factor Score: 3 Thrombosis Risk Factor Assessment Level: Moderate Risk Assessment and Plan Assessment: Iatrogenic right pneumothorax s/p biopsy of lung mass Presumed cancer of the lung Moderate COPD (chronic obstructive pulmonary disease) Asbestos exposure Mild pulmonary hypertension BENJY positive REID (dyspnea on exertion) HTN - Hypertension Hyperlipidemia Allergic eosinophilia Pulmonary fibrosis Asthma O2 to maintain saturation > or = 90% Pigtail catheter accidentally dislodged during transport, repeat CXR reviewed Discussed with IR who will replace catheter Follow CXR CT to LIS Continue patient's home medications, hold Eliquis and Ranexa for now Pain control IS and pulmonary hygiene Patient's daughter is at bedside and is updated to the plan of care. Time with Patient: Greater than 30
[2018-09-13] MEDS: ATORVASTATIN 80 MG TAB PO SCH (21:02)
[2018-09-13] MEDS: hydrALAZINE HCL 50 MG TAB PO SCH (21:02)
[2018-09-13] MEDS: METOPROLOL TARTRATE 50 MG TAB PO SCH (21:02)
[2018-09-13] MEDS: TAMSULOSIN 0.4 MG CAP.ER.24H PO SCH (21:02)
--- NOTE | 2018-09-14 00:03 | XR ---
EXAM: XR Chest, 2 Views CLINICAL HISTORY: ITS.REASON XR Reason: chest tube TECHNIQUE: Frontal and lateral views of the chest. COMPARISON: 1733 hrs. FINDINGS: Lungs: Unremarkable. No consolidation. Pleural space: A trace right apical pneumothorax appears to persist. Heart: Unremarkable. No cardiomegaly. Mediastinum: Unremarkable. Bones/joints: No acute fracture. Tubes, lines and devices: Pigtail catheter at the base of the right hemithorax. IMPRESSION: A trace right apical pneumothorax appears to persist.
--- NOTE | 2018-09-14 08:27 | XR ---
EXAMINATION TYPE: XR chest 1V portable DATE OF EXAM: 09/14/2018 COMPARISON: CT chest May 06, 2016. Chest x-ray and CT biopsy from yesterday. HISTORY: Right lung biopsy with pneumothorax status post chest tube placement. TECHNIQUE: Single AP portable frontal upright view of the chest is obtained. FINDINGS: There is persistent right basilar chest tube with tiny right apical pneumothorax. Patchy b ibasilar opacities remain present. Cardiomegaly is seen with atherosclerotic aorta. Multilevel spurri ng and disc space narrowing throughout the spine is present. Osseous structures are intact. Backgroun d chronic emphysematous change redemonstrated. Targeted right basilar nodule less well-seen on x-ray versus CT. IMPRESSION: Overall stable findings from most recent x-ray, tiny right apical pneumothorax with righ t basilar chest tube. Cardiomegaly and chronic emphysematous change with patchy bibasilar atelectasis and/or infiltrate.
[2018-09-14] MEDS: FUROSEMIDE 20 MG TAB PO SCH (09:07)
[2018-09-14] MEDS: CHOLECALCIFEROL 1,000 UNIT TAB PO SCH (09:07)
[2018-09-14] MEDS: ASPIRIN 81 MG PO SCH (09:07)
[2018-09-14] MEDS: LOSARTAN 50 MG TAB PO SCH (09:07)
[2018-09-14] MEDS: METOPROLOL TARTRATE 50 MG TAB PO SCH ×2 (09:07→22:38)
[2018-09-14] MEDS: FINASTERIDE 5 MG TAB PO SCH (09:07)
[2018-09-14] MEDS: hydrALAZINE HCL 50 MG TAB PO SCH ×2 (09:07→22:38)
[2018-09-14] MEDS: TAMSULOSIN 0.4 MG CAP.ER.24H PO SCH ×2 (09:07→22:38)
[2018-09-14] MEDS: FERROUS SULFATE 325 MG TAB PO SCH (09:07)
--- NOTE | 2018-09-14 09:14 | P.GSCN ---
History of Present Illness Consult date: 09/14/18 Reason for Consult: Right pneumothorax, right pigtail catheter management. Requesting physician: Tristan Hinojosa History of present illness: This is an 83-year-old gentleman who is followed by Dr. John Cm on an ou tpatient basis. His past medical history significant for a recently found right lower lobe pleural-based spiculated lung mass per computed tomography scan of his chest measuring 2.4 x 2.4 cm, chronic obstructive pulmonary disease, chronic atrial fibrillation on Eliquis, hypertension, hyperlipidemia, prostate disorder, history of throat cancer 14 years ago, history of cerebrovascular accident in with some residual left sided arm numbness, history of bilateral carotid stenosis, peripheral arterial disease with history of previous iliac stent placements and coronary artery disease. Recently, the patient has been experiencing episodes of shortness of breath, complaining of feeling weak and fatigued. He denies any pain, pre syncope or syncope, nausea, vomiting, fever or chills. He was recently seen by Dr. Huerta a dye line operator out of [facility] and underwent a cardiac catheterization which showed him to have a totally occluded right coronary artery with robust collaterals from a large septal branch and obtuse marginal #2 branch. It also demonstrated him to have pulmonary hypertension with an MPA 26. He was referred to Dr. Story from pulmonary medicine for further evaluation for his shortness of breath. A computed tomography scan of his chest was completed which showed a 2.4 x 2.4 cm pleural-based spiculated right lower lobe lung mass. Due to the incidental finding he was scheduled for a biopsy of the lung mass and a PET scan. Yesterday 09/13/2018, after obtaining consent he underwent a successful CT- guided fine-needle aspiration of the right lower lobe lung mass. During the fine-needle aspiration a right sided pneumothorax occurred and a right-sided pig tail tube was placed. Due to the right pneumothorax a consult was placed to Dr. David Salmeron from cardiothoracic surgery for further evaluation and recommendations. Review of Systems A 14 point review systems was completed and was negative except as mentioned in HPI. Past Medical History Past Medical History: Atrial Fibrillation, Coronary Artery Disease (CAD), Cancer, Chest Pain / Angina, COPD, CVA/TIA, Hyperlipidemia, Hypertension, P rostate Disorder, Vascular Disorder Additional Past Medical History / Comment(s): PAD with history of iliac stent placements, hx throat CA 14 yrs. ago-tx. w/radiation, CVA 1998- numbness left arm, mass in lung, hx. of asbestos exposure years ago, SOB w/exertion, history of bilateral carotid stenosis. History of Any Multi-Drug Resistant Organisms: None Reported Past Surgical History: Heart Catheterization Additional Past Surgical History / Comment(s): left carotid endartectomy, justine cataracts, "neck sx for pinched nerve," stenting right & left iliac arteries Past Anesthesia/Blood Transfusion Reactions: No Reported Reaction Past Psychological History: No Psychological Hx Reported Smoking Status: Former smoker Past Alcohol Use History: None Reported Additional Past Alcohol Use History / Comment(s): quit smoking 2013, smoked 1ppd from age 15 Past Drug Use History: None Reported - Past Family History Mother Family Medical History: No Reported History Medications and Allergies Home Medications Medication Instructions Recorded Confirmed Type Atorvastatin [Lipitor] 80 mg PO HS 05/05/17 09/13/18 History Losartan [Cozaar] 100 mg PO QAM 05/05/17 09/13/18 History Metoprolol Tartrate [Lopressor] 50 mg PO BID 08/16/17 09/13/18 History Apixaban [Eliquis] 5 mg PO BID 08/26/18 09/13/18 History Aspirin 81 mg PO DAILY 08/26/18 09/13/18 History Beclomethasone Dipropionate [Qvar 1 puff INHALATION BID 08/26/18 09/13/18 History 80 mcg] Cholecalciferol [Vitamin D3] 1,000 unit PO DAILY 08/26/18 09/13/18 History Ferrous Sulfate [Feosol] 325 mg PO DAILY 08/26/18 09/13/18 History Finasteride [Proscar] 5 mg PO DAILY 08/26/18 09/13/18 History Fluticasone Propionate [Flovent 1 puff INHALATION BID 08/26/18 09/13/18 History Hfa 220 mcg] Furosemide [Lasix] 20 mg PO DAILY 08/26/18 09/13/18 History Ranolazine [Ranexa] 500 mg PO BID 08/26/18 09/13/18 History Tamsulosin HCl [Flomax] 0.4 mg PO BID 08/26/18 09/13/18 History hydrALAZINE HCL [Apresoline] 50 mg PO BID 08/26/18 09/13/18 History Allergies Allergy/AdvReac Type Severity Reaction Status Date / Time No Known Allergies Allergy Verified 09/13/18 08:32 Surgical - Exam Vital Signs Temp Pulse Resp BP Pulse Ox 97.5 F L 52 L 14 144/75 96 09/13/18 08:39 09/13/18 08:39 09/13/18 08:39 09/13/18 08:39 09/13/18 08:39 - General Thin well developed, well nourished, no distress, no pain - Eyes PERRL, normal ocular movement - ENT normal pinna, normal nares, normal mucosa, no hearing loss, no congestion, dentures - Neck no masses, trachea midline, no venous distension carotid bruit: left - Respiratory Lung sounds are essentially clear throughout, diminished to his bilateral bases. Respirations are symmetrical and nonlabored. Oxygen saturation are 97% on 2 L nasal cannula. Right pleural pigtail catheter in place to low continuous wall suction -20 cm H2O. No air leaks present. Draining thin serosanguineous drainage. 40 mL of drainage since pigtail catheter has been placed. - Cardiovascular Irregular rhythm with controlled rate. S1 and S2 present, negative for S3, gallop or murmur. No edema present. Remote telemetry showing atrial fibrillation heart rate 63. - Abdomen Abdomen is soft, nontender and nondistended. Active bowel sounds to all 4 abdominal quadrants. No guarding or rigidity. No organomegaly. - Genitourinary Deferred - Rectum Deferred - Integumentary no rash, no growths, no abnormal pigmentation - Neurologic Left arm numbness. normal coordination - Musculoskeletal normal gait, normal posture - Psychiatric oriented to time, oriented to person, oriented to place, speech is normal, memory intact Results - Labs 09/13/18 08:10 Abnormal Lab Results - Last 24 Hours (Table) 09/13/18 09/13/18 Range/Units 08:10 08:10 RDW 15.8 H (11.5-15.5) % Plt Count 133 L (150-450) k/uL PT 13.0 H (9.0-12.0) sec INR 1.3 H (<1.2) - Imaging Chest x-ray: report reviewed, image reviewed CT scan - chest: report reviewed, image reviewed Assessment and Plan Assessment: Right pneumothorax status post biopsy of right lung mass Presumed cancer of the lung Chronic obstructive pulmonary disease 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 His chart and diagnostics were reviewed. His case was discussed with Dr. David Salmeron from cardiothoracic surgery. His chest x-ray this morning demonstrates a tiny right apical pneumothorax less than 5%. We will place his right pigtail catheter to waterseal and repeat a chest x-ray 4 hours after placing the chest tube to waterseal. At this time no surgical intervention is recommended. Lung mass pathology results remain pendin g. We will order an incentive spirometry and encouraged him to use it every hour while awake. Medical management per primary care service. Bronchodilator management per pulmonary service. Wean oxygen as tolerated. Increase activity as tolerated. More recommendations to follow based on patient's clinical course. Thank you Dr. Hinojosa for this consult and we will look for to working with you in the care of your patient. Time with Patient: Greater than 30
--- NOTE | 2018-09-14 11:49 | XR ---
EXAMINATION TYPE: XR chest 1V portable DATE OF EXAM: 09/14/2018 COMPARISON: Chest x-ray earlier today. HISTORY: Right-sided pneumothorax. TECHNIQUE: Single frontal view of the chest is obtained. FINDINGS: Tiny right apical pneumothorax on prior study is not clearly seen. Right basilar chest tube redemonstrated. Background chronic emphysematous change with bibasilar opacities suggesting scarring and/or atelectasis. Cardiac silhouette size remains enlarged with atherosclerotic and ectatic aorta. Old fracture deformity mid right clavicle is redemonstrated. IMPRESSION: No significant pneumothorax on current study with right basilar chest tube noted.
--- NOTE | 2018-09-14 12:59 | P.PN ---
Subjective Progress Note Date: 09/14/18 09/14/2018: Patient seen and examined with his daughter at bedside. The patient apparently had worsening shortness of breath overnight. The patient states that he feels 100% at this time. He denies any chest pain or shortness of breath. His chest tube is to waterseal. He did have a chest x-ray which shows no evidence of pneumothorax. This is discussed with cardiothoracic team. We will recheck chest x-ray in 2-3 hours and decide about removing chest tube. Objective - Vital Signs Vital signs: Vital Signs Temp 97.8 F 09/14/18 12:00 Pulse 55 L 09/14/18 12:00 Resp 18 09/14/18 12:00 BP 126/66 09/14/18 12:00 Pulse Ox 94 L 09/14/18 12:00 Intake & Output 09/13/18 09/14/18 09/14/18 18:59 06:59 18:59 Intake Total 240 Balance 240 Weight 72.5 kg Intake: Oral 240 Other: Voiding Method Toilet # Voids 1 - Exam General: Patient is alert and oriented 3, no acute distress Cardiovascular: Regular rate and rhythm, S1/S2 Lungs: Diminished breath sounds bilaterally, pigtail chest tube in place Abdomen: Soft nontender nondistended positive bowel sounds Extremities: No edema - Labs CBC & Chem 7: 09/13/18 08:10 Labs: Abnormal Lab Results - Last 24 Hours (Table) 09/13/18 Range/Units 08:10 RDW 15.8 H (11.5-15.5) % Plt Count 133 L (150-450) k/uL Assessment and Plan Assessment: Iatrogenic right pneumothorax s/p biopsy of lung mass Presumed cancer of the lung Moderate COPD (chronic obstructive pulmonary disease) Asbestos exposure Mild pulmonary hypertension BENJY positive REID (dyspnea on exertion) HTN - Hypertension Hyperlipidemia Allergic eosinophilia Pulmonary fibrosis Asthma O2 to maintain saturation > or = 90% Follow CXR - repeat in 2 hours on water seal and decide on next steps Continue patient's home medications, hold Eliquis and Ranexa for now Pain control IS and pulmonary hygiene Patient's daughter is at bedside and is updated to the plan of care.
--- NOTE | 2018-09-14 15:43 | XR ---
EXAMINATION TYPE: XR chest 1V portable DATE OF EXAM: 09/14/2018 COMPARISON: Chest x-ray earlier today. HISTORY: Right-sided pneumothorax. TECHNIQUE: Single AP portable frontal upright view of the chest is obtained. FINDINGS: No significant new right-sided pneumothorax. Right basilar chest tube is redemonstrated. [place] chronic emphysematous change with increasing bibasilar opacities suggesting scarring and/or atelectasis. Cardiac silhouette size remains enlarged with atherosclerotic and ectatic aorta. Old fra cture deformity mid right clavicle is redemonstrated. IMPRESSION: No new pneumothorax. Increasing bibasilar atelectasis and/or infiltrate with right basil ar chest tube in place.
[2018-09-14] MEDS: ATORVASTATIN 80 MG TAB PO SCH (22:38)
[2018-09-15] MEDS: LOSARTAN 50 MG TAB PO SCH (08:53)
[2018-09-15] MEDS: ASPIRIN 81 MG PO SCH (08:54)
[2018-09-15] MEDS: FINASTERIDE 5 MG TAB PO SCH (08:54)
[2018-09-15] MEDS: hydrALAZINE HCL 50 MG TAB PO SCH (08:54)
[2018-09-15] MEDS: METOPROLOL TARTRATE 50 MG TAB PO SCH (08:54)
[2018-09-15] MEDS: CHOLECALCIFEROL 1,000 UNIT TAB PO SCH (08:54)
[2018-09-15] MEDS: TAMSULOSIN 0.4 MG CAP.ER.24H PO SCH (08:54)
[2018-09-15] MEDS: FERROUS SULFATE 325 MG TAB PO SCH (08:54)
[2018-09-15] MEDS: FUROSEMIDE 20 MG TAB PO SCH (08:58)
--- NOTE | 2018-09-15 08:59 | P.PN ---
Subjective Progress Note Date: 09/15/18 Principal diagnosis: Spontaneous right sided pneumothorax status post fine needle aspiration for biopsy with pigtail placement by interventional radiology. Previous medical history of RLL spiculated mass on CT, COPD, previous tobacco dependence, pulmonary hypertension, asbestosis exposure, chronic afib on Eliquis for anticoagulation, throat cancer 14 years ago status post radiation, coronary artery disease, hypertension, hyperlipidemia, prostate disorder, CVA with residual left arm numbness, bilateral carotid stenosis status post left carotid endarterectomy, peripheral arterial disease with iliac stent placement. The patient is currently sitting up in bed in no acute distress eating breakfast. Denies pain or shortness of breath. Has been ambulatory in the room without difficulty. [facility], no air leak present. Actively using his incentive spirometry. No new complaints except he wants the chest tube out. Objective - Vital Signs Vital signs: Vital Signs Temp 98.2 F 09/15/18 03:57 Pulse 63 09/15/18 03:57 Resp 18 09/15/18 03:57 BP 92/59 09/15/18 03:57 Pulse Ox 94 L 09/15/18 03:57 Intake & Output 09/14/18 09/15/18 09/15/18 18:59 06:59 18:59 Intake Total 230 480 Balance 230 480 Weight 72.1 kg Intake: Oral 230 480 Other: # Voids 1 - Constitutional General appearance: Present: cooperative, no acute distress - Respiratory Details: Lungs sounds diminished bilaterally. Respirations even, nonlabored. Currently on room air with oxygen saturation 94%. Able to achieve 3000 mL on his incentive spirometry. Strong cough. Right pigtail catheter present, connected to atrium to waterseal, 60 mL serosanguineous output since insertion, no air leak present. - Cardiovascular Details: S1, S2 present. Irregular rate and rhythm, controlled atrial fibrillation on telemetry. Palpable peripheral pulses bilaterally. No edema present. No calf pain or tenderness noted. - Gastrointestinal Gastrointestinal Comment(s): Abdomen soft, nontender, nondistended. Active bowel sounds present 4 quadrants. Tolerating diet. - Genitourinary Genitourinary Comment(s): Continues to void clear, yellow urine. - Integumentary Integumentary Comment(s): Skin is warm and dry without evidence of good perfusion. Dressing over right sided pigtail catheter clean dry and intact. - Neurologic Neurologic: Present: CNII-XII intact - Musculoskeletal Musculoskeletal: Present: gait normal, strength equal bilaterally - Psychiatric Psychiatric: Present: A&O x's 3, appropriate affect, intact judgment & insight - Allied health notes Allied health notes reviewed: nursing - Labs CBC & Chem 7: 09/13/18 08:10 - Imaging and Cardiology Chest x-ray: image reviewed Assessment and Plan Assessment: Spontaneous right-sided pneumothorax, status post fine-needle aspiration for biopsy with pigtail catheter placement by interventional radiology History of right lower lobe spiculated mass on CT, presumed cancer COPD Previous tobacco dependence Pulmonary hypertension Asbestosis exposure Chronic atrial fibrillation on Eliquis for anticoagulation Throat cancer 14 years ago status post radiation Coronary artery disease status post recent heart catheterization Hypertension Hyperlipidemia Prostate disorder CVA with residual left arm numbness Bilateral carotid stenosis status post left carotid endarterectomy Peripheral arterial disease with iliac stent placement Plan: 1. No surgical intervention recommended. Pigtail catheter can be discontinued by interventional radiology if okay with Dr. Story. 2. Encourage incentive spirometry use 10 times every hour while awake. 3. Encourage continued smoking cessation. 4. Bronchodilators per pulmonology 5. Increase activity as tolerated, ambulate in hallway. 6. We will continue to see on an as-needed basis. Please call us with any questions. Time with Patient: Greater than 30
--- NOTE | 2018-09-15 10:13 | XR ---
EXAMINATION TYPE: XR chest 1V portable DATE OF EXAM: 09/15/2018 COMPARISON: 09/14/2018 INDICATION: Right-sided pneumothorax TECHNIQUE: Single frontal view of the chest is obtained. FINDINGS: The heart size is normal. The pulmonary vasculature is normal. There is improving lung markings at the lower lung daniels could be resolving atelectasis. Mild residu al remains. There is a catheter present at the right lung base. No pneumothorax is evident on the current exam. IMPRESSION: 1. No pneumothorax. Chest tube remains present at the right base. 2. Resolving subsegmental atelectasis.
[2018-09-15 10:34] VITALS: RESP 20
[2018-09-15 10:35] VITALS: PULSE 64
[2018-09-15 11:58] VITALS: BP 153/69; TEMP 97.6
--- NOTE | 2018-09-15 13:48 | XR ---
EXAMINATION TYPE: XR chest 1V DATE OF EXAM: 09/15/2018 COMPARISON: 09/15/2018 earlier exam INDICATION: Chest tube out TECHNIQUE: Single frontal view of the chest is obtained. FINDINGS: The heart size is moderately prominent. The pulmonary vasculature is normal. There is mild infiltrate within the left midlung may be some atelectasis. Right-sided chest tube is been removed. No pneumothorax is evident. IMPRESSION: 1. No pneumothorax post chest tube removal. 2. Mild atelectasis left midlung.
--- NOTE | 2018-09-16 07:49 | PCN ---
PROCEDURE NOTE PROCEDURE: Removal of right chest tube. PREOPERATIVE DIAGNOSIS: Right pneumothorax. POSTOPERATIVE DIAGNOSIS: Right pneumothorax. PROCEDURE: Patient's right chest was clean with Betadine and . Subsequently, the chest tube was pulled out. Vaseline gauze was in place and a chest x-ray was done, which showed no evidence of a residual pneumothorax. MMODL / IJN: [id number] /
--- NOTE | 2018-09-16 08:08 | DS ---
DISCHARGE SUMMARY Niranjan Hernandes is an 83-year-old male who was initially admitted to the hospital on 09/13/2018. He had a right-sided lung mass and subsequently underwent a lung biopsy under CT guidance. There was a right-sided pneumothorax. Subsequently, a chest tube was inserted, which was a small chest tube with pigtail catheter. Subsequently, patient was admitted for further evaluation. Please see the history and physical by Dr. Stacy Story for circumstances of initial admission. The patient had a right pneumothorax, had been short of breath for approximately a year. Has a known history of coronary artery disease with an occluded RCA with multiple collaterals, history of atrial fibrillation. He is a former smoker. Denies a discrete history of asthma and COPD. 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 PAST MEDICAL HISTORY: Past medical history is positive for A. fib, cancer, chest pain, angina, COPD, CVA, hyperlipidemia, prostate disorder, throat cancer, status post radiation 14 years ago, lung mass, previous history of asbestos exposure, heart catheterization, left carotid endarterectomy. REVIEW OF SYSTEMS: Review of systems is noncontributory. FAMILY HISTORY: Family history is negative. SOCIAL HISTORY: Patient smoked a pack of cigarettes per day since age 15 and quit smoking in 2013. PHYSICAL EXAMINATION: On physical examination, there were no significant issues noted on osteopathic structural exam. Vital signs revealed a temperature of 97.7, respiratory rate of 18, pulse rate of 73, blood pressure 152/84. The patient was in no distress. Cardiovascular system revealed an S1, S2. No murmurs. Lungs reveal diminished breath sounds bilaterally with pigtail catheter on the right side in place. Abdomen was soft and nontender. There was no edema. INITIAL IMPRESSION: 1. Right-sided pneumothorax. 2. Presumed cancer of the lung. 3. Moderate chronic obstructive pulmonary disease. 4. Mild pulmonary hypertension. 5. BENJY positive. 6. Hypertension. 7. Pulmonary fibrosis. 8. Asthma with allergic eosinophilia. The patient was kept on oxygen. Pigtail catheter initially was displaced. Subsequently, IR replaced the catheter. The patient had an episode of dyspnea for which a stat chest x-ray was done and thoracic surgery was consulted. There was no recurrence of the pneumothorax. On 09/15/2018, the chest tube was removed. The lung remained expanded on the right post removal of the chest tube and the patient was discharged. PHYSICAL EXAMINATION: On physical examination, his blood pressure is 153/69, respiratory rate of 20, pulse rate of 64, temperature 97.6, O2 saturation on room air is 94%. HEENT reveals pupils are equal. Chest reveals decreased breath sounds at the bases. Cardiovascular system reveals an S1, S2. Abdomen is soft. There is no edema. Patient will be discharged home today. DISCHARGE DIAGNOSES: 1. Right pneumothorax. 2. Presumed lung cancer. 3. Chronic obstructive pulmonary disease. 4. Coronary artery disease. 5. Previous cerebrovascular accident. Condition is stable. Diet is cardiac. Activities as tolerated. The patient by Dr. Stacy Story in 24 hours. Discharge medications included: 1. Flovent HFA 220 mcg 1 puff twice a day. 2. Hydralazine 50 mg p.o. b.i.d. 3. Ranexa 500 mg p.o. b.i.d. 4. Metoprolol tartrate 50 mg p.o. b.i.d. 5. Cozaar 100 mg p.o. q.a.m. 6. Lasix 20 mg p.o. daily. 7. Proscar 5 mg daily. 8. Ferrous sulfate 325 mg daily. 9. Cholecalciferol 1000 units daily. 10.Lipitor 80 mg p.o. q.h.s. 11.Apixaban 5 mg p.o. b.i.d. 12.Tamsulosin 0.4 mg p.o. b.i.d. 13.Aspirin 81 mg p.o. daily. Final path on his biopsy is pending at this time and will be followed as an outpatient. MMODL / IJN: [id number] /
== END 2018-09-15 14:57 | disposition home or self-care (01) | DRG 200 ==
LOC: RADPROMAIN 07:50 → 3SCARD 12:23 → RADPROMAIN 09-14 16:23
PROVIDERS: ADMIT Internal Medicine; ATTEND Internal Medicine
PROC: 0BBF3ZX Excision of Right Lower Lung Lobe, Percutaneous Approach, Diagnostic (ICD-10-PCS; principal; 2018-09-13)
PROC: 0W9930Z Drainage of Right Pleural Cavity with Drainage Device, Percutaneous Approach (ICD-10-PCS; 2018-09-13)
PROC: 0W9930Z Drainage of Right Pleural Cavity with Drainage Device, Percutaneous Approach (ICD-10-PCS; 2018-09-13)
PROC: 0WP9X0Z Removal of Drainage Device from Right Pleural Cavity, External Approach (ICD-10-PCS; 2018-09-15)
DX: J95.811 Postprocedural pneumothorax (principal); I69.354 Hemiplegia and hemiparesis following cerebral infarction affecting left non-dominant side; C34.31 Malignant neoplasm of lower lobe, right bronchus or lung; D72.1 Eosinophilia; I25.82 Chronic total occlusion of coronary artery; I48.2 Chronic atrial fibrillation; J84.10 Pulmonary fibrosis, unspecified; I27.20 Pulmonary hypertension, unspecified; I65.21 Occlusion and stenosis of right carotid artery; J44.9 Chronic obstructive pulmonary disease, unspecified; I73.9 Peripheral vascular disease, unspecified; I10 Essential (primary) hypertension; I25.10 Atherosclerotic heart disease of native coronary artery without angina pectoris; N42.9 Disorder of prostate, unspecified; E78.5 Hyperlipidemia, unspecified; R76.8 Other specified abnormal immunological findings in serum; Z79.01 Long term (current) use of anticoagulants; Z79.82 Long term (current) use of aspirin; Z79.51 Long term (current) use of inhaled steroids; Z79.899 Other long term (current) drug therapy; Z77.090 Contact with and (suspected) exposure to asbestos; Z87.891 Personal history of nicotine dependence; Z85.819 Personal history of malignant neoplasm of unspecified site of lip, oral cavity, and pharynx; Z92.3 Personal history of irradiation; Z86.79 Personal history of other diseases of the circulatory system; Z95.828 Presence of other vascular implants and grafts; Z98.42 Cataract extraction status, left eye; Z98.41 Cataract extraction status, right eye; Y84.8 Other medical procedures as the cause of abnormal reaction of the patient, or of later complication, without mention of misadventure at the time of the procedure; Y92.234 Operating room of hospital as the place of occurrence of the external cause
CPT/HCPCS: 32551; 71045; 71046; 77012; 85027; 85049; 85610; 88305

== ENCOUNTER → 2018-11-02 | Outpatient (CLI) | payer MEDICARE, BC ==
--- NOTE | 2018-11-02 18:24 | CT ---
EXAMINATION TYPE: CT ChestAbdPelvis w con DATE OF EXAM: 11/02/2018 COMPARISON: 09/13/2018 CT, 05/06/2016 CT HISTORY: abnormal lung exam, chest and abdominal pain. hx of lung ca CT DLP: 658.5 mGycm Automated exposure control for dose reduction was used. CONTRAST: CT scan of the chest, abdomen and pelvis is performed with Oral Contrast and with IV Contra st, patient injected with 100 mL of Isovue 300. FINDINGS: AIRWAYS/LUNGS: The airways are unremarkable. Right lower lobe 2.5 cm greatest dimension bronchogenic mass redemonstrated posteriorly. Scattered subcentimeter noncalcified pulmonary and partially-calcifi ed pleural opacities are redemonstrated. No acute pulmonary process. No new pulmonary findings. PLEURAL SPACES: No pneumothorax. No pleural effusions. MEDIASTINUM: There are no greater than 1 cm hilar or mediastinal lymph nodes. No acute pulmonary galina rial findings. Moderate cardiomegaly redemonstrated, with no pericardial effusion. Prominent left and right coronary calcifications redemonstrated. Advanced atherosclerotic changes throughout the tortuo us thoracic aorta, abdominal aorta, and aortoiliac inflow noted. Occluded left SFA at its origin note d. OTHER: No other thoracic findings. STOMACH AND DUODENUM: The duodenum is collapsed, but the stomach is air-filled and moderately dilated . Clinical consideration of peptic ulcer disease may be useful. LIVER/GB: No significant abnormality is appreciated. PANCREAS: No significant abnormality is seen. SPLEEN: No significant abnormality is seen. ADRENALS: No significant abnormality is seen. KIDNEYS: No significant abnormality is seen. BOWEL: No significant abnormality is seen. REPRODUCTIVE ORGANS: No gross abnormality seen. LYMPH NODES: No greater than 1 cm abdominal or pelvic lymph nodes are appreciated. OSSEOUS STRUCTURES: No focal lesion. IMPRESSION: 1. Bronchogenic mass redemonstrated. 2. No hyperacute pulmonary/pleural process. 3. No definite acute abdominalpelvic process, but gastric distention noted.
== END ==
LOC: RADCTMAIN 15:11
PROVIDERS: ATTEND Internal Medicine
DX: K31.89 Other diseases of stomach and duodenum (principal); R91.8 Other nonspecific abnormal finding of lung field; R10.12 Left upper quadrant pain; R10.11 Right upper quadrant pain; R07.9 Chest pain, unspecified; R05 Cough; Z85.118 Personal history of other malignant neoplasm of bronchus and lung
CPT/HCPCS: 82565; 84520; 71260; 74177; 36415; Q9967